=== PATIENT | female | born 1945 | race Caucasian/White ===

== ENCOUNTER → 2016-05-21 | Day surgery (SDC) | payer OTHER ==
[~2016-05-21] VITALS: Ht 162.6 cm; Wt 97.5 kg
[~2016-05-21] MED LIST: ALPRAZOLAM 0.50.5 M1 PO; ANTI-INFLAMATORY; ASPIRIN325 PO; BP MED; COLACE100 MG PO; COZAAR100 MG PO; CYCLOBENZAPRINE10 MG PO; CYMBALTA; CYMBALTA60 MG PO; GLYCOLAX POWDER17 G1 PO; GRALISE600 MG PO; HYDROCODONE-AP1 EAC6 PO; HYDROCODONE-APA1 TA1 PO; LOSARTAN-HCTZ1 EAC1 PO; LOSARTAN-HCTZ1 EAC3 PO; LYRICA 50 MG50 MG PO; MIRALAX255 GM PO; MOBIC15 MG PO; MORPHINE S10 MG/5 M2 PO; MULTICHEW PO; MULTIVITAM9 MG/15 M1 PO; MULTIVITAMINS PO; NAPROSYN500 MG PO; NEURONTIN 300300 M1 PO; NORVASC2.5 MG PO; OMEPRAZOLE 20 M20 M1 PO; ONDANSETRON HCL4 M2 PO; OXYBUTYNIN 5 MG5 M2 PO; OXYCODONE HCL 55 MG PO; PRILOSEC 10MG C10 MG PO; PRILOSEC 20 MG20 MG PO; PROTONIX40 M2 PO; PROZAC 10 MG CA10 MG PO; PROZAC20 MG PO; PROZAC40 MG PO; ROXANOL 20 M20 MG/ML PO; TRAMADOL 50 MG50 MG PO; VOLTAREN GEL 1100 G1 TOP; VOLTAREN GEL 1100 G2 TOP; XANAX 0.5 MG0.5 M1 PO; XARELTO10 MG PO
--- NOTE | ~2016-05-21 | O ---
[facility] [place] [address] OPERATIVE REPORT Name: QIANA PORTILLO Room #: REG [facility]#: [id number] Admission: 05/21/16 Attend Phys: Franklin Jansen MD Discharge: Date of : 49 Report #: [id number] THIS REPORT FOR: //name// CC: [facility] physician/PCP Juani Jansen DATE OF SERVICE: 05/21/2016 SURGEON: Franklin Jansen M.D. LOST CHARGE CARD CLERK: None. PREOPERATIVE DIAGNOSIS: Bilateral lower lid ectropion. POSTOPERATIVE DIAGNOSIS: Bilateral lower lid ectropion. OPERATION PERFORMED: Bilateral lower lid ectropion repair. ANESTHESIA: Local with IV sedation. COMPLICATIONS: None. INDICATIONS FOR PROCEDURE: This patient has bilateral acquired lower lid ectropion with chronic tearing and discharge. The current procedures are undertaken in order to improve the patient's visual function, lacrimal outflow, and level of comfort. Informed consent was obtained to include but not limit to the risk of loss of vision, bleeding, infection, scarring, failure to improve the problem and need for further surgery. DESCRIPTION OF OPERATION: The patient was taken to the operating room where 2% Xylocaine with epinephrine mixed with equal parts of 0.75% Marcaine with Wydase was administered transcutaneously and transconjunctivally to each lower lid and lateral canthal area. The patient was then prepped and draped in the usual sterile fashion. A Vincent clamp was then used to clamp the left lateral canthus following which a sharp canthotomy and cantholysis were performed. The tarsal strip was prepared laterally, removing the lash bearing portion of the redundant lid margin and the redundant tarsal plate. Hemostasis was achieved with a monopolar cautery, as it was throughout the case. The tarsal strip was then secured to the internal portion of the lateral orbital tubercle with two interrupted 5-0 Prolene sutures. The lateral canthal angle was sharply reformed as the subcutaneous structures and the skin were closed with multiple interrupted 6-0 plain gut sutures. Attention was then turned to the right side where the same procedure was [facility] [address] [place] [address] OPERATIVE REPORT Name: QIANA PORTILLO Jan Room #: REG [facility].#: [id number] Admission: 05/21/16 Attend Phys: Franklin Jansen MD Discharge: Date of : 49 Report #: [id number] performed. The wounds were cleaned and dressed with ophthalmic antibiotic ointment. The patient was then transported to the recovery area, having tolerated the procedure well with no anesthetic or operative complications being noted. <ELECTRONICALLY SIGNED> By: Franklin Jansen MD 05/25/16 0614 [id number] 1035 Franklin Jansen MD /nt
[2016-05-21 08:10] VITALS: BP 146/85
== END | disposition home or self-care (01) ==
LOC: OR 05:21
DX: H02.102 Unspecified ectropion of right lower eyelid (principal); H02.105 Unspecified ectropion of left lower eyelid; F32.9 Major depressive disorder, single episode, unspecified; I10 Essential (primary) hypertension; M79.7 Fibromyalgia; Z96.653 Presence of artificial knee joint, bilateral; Z98.42 Cataract extraction status, left eye; Z98.41 Cataract extraction status, right eye; Z96.1 Presence of intraocular lens; Z96.641 Presence of right artificial hip joint
CPT/HCPCS: 50010; 50101; 50386; 50398; 51636; 56527; 56531; 62110; 62850; 70005

== ENCOUNTER → 2016-12-15 | Outpatient (CLI) | payer OTHER | LOC: ULTRA 08:08 | DX: K80.20 Calculus of gallbladder without cholecystitis without obstruction (principal); K21.9 Gastro-esophageal reflux disease without esophagitis; K44.9 Diaphragmatic hernia without obstruction or gangrene; E66.01 Morbid (severe) obesity due to excess calories; Z98.890 Other specified postprocedural states ==

== ENCOUNTER 2017-01-13 05:24 | Day surgery (SDC) | payer OTHER ==
[~2017-01-13] VITALS: Ht 162.6 cm; Wt 109.3 kg
--- NOTE | ~2017-01-13 | S ---
[facility] [place] [address] SURGICAL PATH RPT PROCEDURE Name: QIANA SHAFER Room #: DEP [facility].#: [id number] Admission: 01/13/17 Date of : 49 Discharge: 01/13/17 Report #: [id number] Path Case #: [id number] PATHOLOGY REPORT COLLECTION DATE: 01/13/2017 RECEIVED DATE: 01/13/2017 SUBMITTING PHYS: Dr. Gerald Ybarra OTHER PHYS: BRIJESH Bland SPECIMEN(S) RECEIVED: A.Gallbladder * * * * * * * * * * * * FINAL DIAGNOSIS: "Gallbladder", cholecystectomy: - Chronic cholecystitis with cholesterolosis. - Cholelithiasis. (CLW:helen; 01/15/2017) PATHOLOGIST: Selina Gallego M.D. REPORT ELECTRONICALLY SIGNED BY: Selina Gallego M.D. DATE/TIME: 01/15/2017 14:56 * * * * * * * * * * * * GROSS PATHOLOGY: Received in formalin labeled "Qiana Shafer, gallbladder," is a 6.4 x 5.3 x 2.3 cm, previously opened gallbladder with a graybluish, wrinkled serosal surfaces. Opening the gallbladder reveals dark green, velvety mucosa rippled with yellow highlights, and an average wall thickness of 0.2 cm. Calculi are present, measuring 0.3-0.8 cm in maximum dimension, possessing a dark brown color, and feeling friable to the touch. No masses are noted grossly. Rebar Bender sections from the body and fundus are submitted along with the proximal margin in cassette A1. (TSD; 01/14/2017) CLINICAL HISTORY: Cholelithiasis INITIAL CPT CODE(S): A; 73782 Professional services performed by [facility] at [facility] [address], [place] [address] [facility] [address] [place] [address] SURGICAL PATH RPT PROCEDURE Name: QIANA SHAFER Jan Room #: DEP [facility] Mary#: [id number] Admission: 01/13/17 Date of : 49 Discharge: 01/13/17 Report #: [id number] Path Case #: [id number] Technical services performed by [facility] at [address] [place] [address], [facility] [address] [address]. [facility] [address] [place] [address] PHONE: [phone] DIRECTOR: Jer Arellano M.D. * * * END OF REPORT * * *
--- NOTE | ~2017-01-13 | O ---
[address] [address] OPERATIVE REPORT Name: QIANA PORTILLO Room #: [facility].#: [id number] Admission: 01/13/17 Attend Phys: Gerald Ybarra MD, F Discharge: 01/13/17 Date of : 49 Report #: [id number] THIS REPORT FOR: //name// CC: Bere Ybarra DATE OF SERVICE: 01/13/2017 SURGEON: Gerald Ybarra MD UNDERWRITER: None. PREOPERATIVE DIAGNOSES: 1. Symptomatic cholelithiasis. 2. Hypertension. 3. Anxiety. 4. Fibromyalgia. 5. History of sleeve gastrectomy. POSTOPERATIVE DIAGNOSES: 1. Symptomatic cholelithiasis. 2. Hypertension. 3. Anxiety. 4. Fibromyalgia. 5. History of sleeve gastrectomy. PROCEDURE: Robotic assisted laparoscopic cholecystectomy. ANESTHESIA: General endotracheal anesthesia and local anesthetic. ESTIMATED BLOOD LOSS: 10 mL. SPECIMEN: Gallbladder. COMPLICATIONS: None appreciated. INDICATIONS FOR PROCEDURE: This is a 71-year-old female patient of Bere Bhakta, nurse practitioner, who was seen with complaints of postprandial right upper quadrant abdominal pain and nausea. Abdominal ultrasound revealed cholelithiasis with gallbladder wall thickening. The patient presents now for robotic-assisted laparoscopic cholecystectomy. OPERATIVE FINDINGS: Upon entrance into the abdominal cavity, the patient had evidence for chronic cholecystitis. The gallbladder wall was thickened from chronic changes with no acute inflammatory changes seen. The critical view consisting of the cystic artery, cystic duct and lower edge of the gallbladder [address] [place] [address] OPERATIVE REPORT Name: QIANA PORTILLO Room #: DEP [facility].#: [id number] Admission: 01/13/17 Attend Phys: Gerald Ybarra MD, F Discharge: 01/13/17 Date of : 49 Report #: [id number] forming a window to which liver was visible, was seen prior to clipping the cystic artery and cystic duct. After removal of the gallbladder from the abdominal cavity, gallbladder was found to be packed with multiple small nonpigmented stones. No other significant intraabdominal pathology was identified. Two clips remained on the cystic duct stump; one clip remained on the cystic artery stump. At the conclusion of the operation, the sponge, needle, and instrument counts were correct. There was no evidence for iatrogenic injury and no other significant intraabdominal pathology was seen. DESCRIPTION OF PROCEDURE IN DETAIL: After the risks, benefits, and expectations of the operation were discussed in detail with the patient, informed consent was obtained. The patient was identified in the preoperative holding area. She was given IV antibiotics as documented in the chart in line with SCIP metrics. The patient was then taken to the operating room and she was placed in the supine position. SCDs were placed on the patient's bilateral lower extremities and pneumatic compression was initiated. The patient was then given IV sedation and she was intubated without incident. The bed was rotated 180 degrees to accommodate for docking of the robot. The patient's abdomen was then prepped and draped in the standard sterile fashion. A timeout was performed to identify the correct patient and procedure. Local anesthetic was infiltrated into the skin and subcutaneous tissue in the left mid abdomen where a small transverse incision was made. A 5 mm Visiport was placed intraperitoneally with a 0-degree angled laparoscope. Pneumoperitoneum was achieved with insufflation of carbon dioxide to 15 mmHg. A 30-degree angled laparoscope was then inserted. A 12 mm infraumbilical as well as 8 mm right quadrant ports x 2 were placed under direct visualization after local anesthetic was infiltrated into the skin and subcutaneous tissue and appropriately sized incisions were made. The 8 mm ports were specific for the da Teena robot. Using the 30-degree angled scope, a 5 mm port was upsized to the da Teena specific 8 mm port under direct visualization. The patient was then placed in the reverse Trendelenburg position. The robot was then brought in to dock to the laparoscopic ports. Just prior to docking the robot to each port, the patient was further positioned in the reverse Trendelenburg position, rotated slightly to the left. The robot was then docked to each of the ports. I then broke scrub to perform the dissection on the robotic console. Using prograsper instruments in arms 2 and 3 and the hook in arm 1, the gallbladder was retracted in lateral direction. The gallbladder and peritoneum was then scored medially and laterally with the hook cautery. Dissection was carried out around the cystic artery and cystic duct to identify both structures as there were only two structures entering the gallbladder. The critical view of safety as described above was seen. The cystic duct was then triply clipped and cystic artery doubly clipped and each structure was divided sharply with a good seal/hemostasis. The gallbladder was then dissected out of the liver bed with the hook cautery. The clip on the gallbladder side of the [facility] [address] [place] [address] OPERATIVE REPORT Name: QIANA PORTILLO Room #: [facility] M.R.#: [id number] Admission: 01/13/17 Attend Phys: Gerald Ybarra MD, F Discharge: 01/13/17 Date of : 49 Report #: [id number] cystic duct became dislodged. There was a small amount of bile and some gallstones that spilled out of the gallbladder. The gallbladder was fully dissected out the liver bed, then placed in the right upper quadrant of the abdomen for later removal. The abdominal cavity was then irrigated and suctioned and return of all drainage ran clear. There was good hemostasis in the liver bed. I then rescrubbed to retrieve the gallbladder. An Endopouch was placed through the 12 mm port and a 5 mm 30-degree angled laparoscope was used to assist with placement of the gallbladder into the Endopouch. The spilled gallstones were also placed within the Endopouch. Several stones were also retrieved with the grasper itself. The gallbladder was then removed through the 12 mm port site. A #0 PDS suture was then placed with the Bashir-Vivienne laparoscopic fascial closure device under direct visualization. The liver bed was reexamined for hemostasis. No other significant pathology was identified. The suture was tied under direct visualization to ensure no incorporation of intraabdominal content with the closure. The abdominal cavity was then desufflated and the ports were removed. Interrupted subcuticular 4-0 Monocryl sutures and Dermabond were used to close the skin incisions. The patient tolerated the procedure well. She was awakened, extubated, and taken to recovery room in stable condition with no apparent intraoperative complications. <ELECTRONICALLY SIGNED> By: Gerald Ybarra MD, FACS 01/14/17 0652 [id number] 0022 Gerald Ybarra MD, FACS /nt
[~2017-01-13 05:24] MED LIST changes: +MIRALAX17 G1 PO; +PAXIL 20 MG TAB20 MG PO; +VITAMIN B12-FO1 EAC1 PO; +VITAMIN D2000 UNI1 PO
[2017-01-13 08:21] VITALS: BP 139/69
[2017-01-13] MEDS ORDERED: MEDI-LAXX TABL1 EACH PO (11:15)
[2017-01-13] MEDS ORDERED: AUGMENTIN 875875 MG PO (11:15)
[2017-01-13] MEDS ORDERED: DIFLUCAN200 MG PO (11:15)
[2017-01-13] MEDS ORDERED: HYDROCODONE-AP1 EAC6 PO (11:15)
[2017-01-13 11:50] VITALS: BP 139/69
== END 2017-01-13 15:00 | disposition home or self-care (01) ==
LOC: OR 05:24 → TBA 05:25 → OR 09:40
DX: K80.10 Calculus of gallbladder with chronic cholecystitis without obstruction (principal); I10 Essential (primary) hypertension; M79.7 Fibromyalgia; F41.8 Other specified anxiety disorders; F32.89 Other specified depressive episodes; G47.33 Obstructive sleep apnea (adult) (pediatric); Z96.653 Presence of artificial knee joint, bilateral; Z98.84 Bariatric surgery status; Z98.890 Other specified postprocedural states; Z98.41 Cataract extraction status, right eye; Z98.42 Cataract extraction status, left eye; Z96.1 Presence of intraocular lens; Z90.710 Acquired absence of both cervix and uterus; Z96.641 Presence of right artificial hip joint; Z79.899 Other long term (current) drug therapy
CPT/HCPCS: 49000; 50010; 50101; 50249; 50411; 50555; 50558; 51975; 52265; 54022; 54118; 56525; 56526; 56632; 56641; 57006; 62110; 62900; 64029; 70005

== ENCOUNTER → 2017-04-16 | Outpatient (CLI) | payer OTHER ==
[~2017-04-16] MED LIST changes: +AUGMENTIN 875875 MG PO; +DIFLUCAN200 MG PO; +MEDI-LAXX TABL1 EACH PO
== END ==
LOC: RAD 08:32
DX: M25.551 Pain in right hip (principal)

== ENCOUNTER → 2018-03-09 | Outpatient (CLI) | payer OTHER | LOC: RAD 01:17 | DX: Z12.31 Encounter for screening mammogram for malignant neoplasm of breast (principal) ==

== ENCOUNTER → 2019-02-23 | Outpatient (CLI) | payer OTHER | LOC: CAT 09:23 | DX: M25.462 Effusion, left knee (principal); M71.22 Synovial cyst of popliteal space [Baker], left knee; Z96.652 Presence of left artificial knee joint ==

== ENCOUNTER → 2019-12-21 | Outpatient (CLI) | payer OTHER ==
[2019-12-21 10:27] LABS: ABSOLUTE NEUTROPHILS 4.1 thou/uL (1.4-8.2); BASOPHILS 0.8 % (0.0-2.0); EOSINOPHILS 1.6 % (0.0-3.0); HEMATOCRIT 41.5 % (37.0-47.0); HEMOGLOBIN 13.4 gm/dL (12.0-15.0); LYMPHOCYTES 30.1 % (24.0-44.0); MCH 27.4 pg (26.0-34.0); MCHC 32.2 g/dL (28.0-37.0); MCV 85.2 fL (80.0-100.0); PLATELET COUNT 313 thou/uL (150-400); POLYS 60.5 % (36.0-66.0); RBC 4.87 mil/uL (4.20-5.00); RDW 15.6 % (10.5-14.5); WBC 6.7 thou/uL (4.0-11.0)
[2019-12-21 11:30] LABS: ALBUMIN 3.7 g/dL (3.4-5.0); ANION GAP 9 mmol/L (7-16); BUN 17 mg/dL (7-18); CALCIUM 8.8 mg/dL (8.5-10.1); CHLORIDE 104 mmol/L (98-107); CHOLESTEROL 236 mg/dL (<200); CO2 29 mmol/L (21-32); DIRECT BILIRUBIN 0.1 mg/dL (<0.1-0.2); GLUCOSE 108 mg/dL (74-106); HDL CHOLESTEROL 82 mg/dL (>40); LDL CHOLESTEROL 141 mg/dL (<100); POTASSIUM 3.9 mmol/L (3.5-5.1); SGOT 16 U/L (15-37); SGPT 19 U/L (30-65); SODIUM 142 mmol/L (136-145); TC:HDL 2.9 Ratio (Not establshd); TOTAL BILIRUBIN 0.5 mg/dL (0.2-1.0); TOTAL PROTEIN 7.3 g/dL (6.4-8.2); TRIGLYCERIDE 66 mg/dL (<150); VLDL 13 mg/dL (<40)
[2019-12-21 12:21] LABS: TSH 1.62 uIU/mL (0.358-3.740)
[2019-12-22 01:06] LABS: GLYCOHEMOGLOBIN (HGB A1C) 5.5 % (4.8-5.6)
== END ==
LOC: LABMALL 08:36
PROVIDERS: ATTEND Registered Nurse Diabetes Educator
DX: Z13.220 Encounter for screening for lipoid disorders (principal); Z13.1 Encounter for screening for diabetes mellitus; E55.9 Vitamin D deficiency, unspecified; G47.33 Obstructive sleep apnea (adult) (pediatric); F41.9 Anxiety disorder, unspecified; I10 Essential (primary) hypertension; K21.9 Gastro-esophageal reflux disease without esophagitis; M54.12 Radiculopathy, cervical region; Z68.39 Body mass index [BMI] 39.0-39.9, adult

== ENCOUNTER → 2020-01-10 | Outpatient (CLI) | payer OTHER | LOC: LAB 11:42 | PROVIDERS: ATTEND Registered Nurse Diabetes Educator | DX: R53.83 Other fatigue (principal) ==

== ENCOUNTER → 2020-03-20 | Outpatient (CLI) | payer OTHER ==
[2020-03-20 13:57] LABS: ABSOLUTE NEUTROPHILS 4.1 thou/uL (1.4-8.2); BASOPHILS 0.8 % (0.0-2.0); EOSINOPHILS 1.2 % (0.0-3.0); HEMATOCRIT 39.4 % (37.0-47.0); HEMOGLOBIN 12.5 gm/dL (12.0-15.0); LYMPHOCYTES 26.6 % (24.0-44.0); MCH 27.3 pg (26.0-34.0); MCHC 31.8 g/dL (28.0-37.0); MCV 85.8 fL (80.0-100.0); MONOCYTES 7.8 % (1.0-8.0); PLATELET COUNT 308 thou/uL (150-400); POLYS 63.6 % (36.0-66.0); RDW 15.1 % (10.5-14.5); WBC 6.5 thou/uL (4.0-11.0)
[2020-03-21 04:06] LABS: GLYCOHEMOGLOBIN (HGB A1C) 5.4 % (4.8-5.6)
[2020-03-21 14:07] LABS: ANTI-DNA SCREEN 14 IU/mL (0-9); ANTI-RNP 0.7 AI (0.0-0.9)
== END ==
LOC: LAB 12:18
PROVIDERS: ATTEND Registered Nurse Diabetes Educator
DX: Z13.1 Encounter for screening for diabetes mellitus (principal); M79.7 Fibromyalgia; R53.83 Other fatigue; I10 Essential (primary) hypertension; G89.29 Other chronic pain; Z68.41 Body mass index [BMI] 40.0-44.9, adult; Z79.899 Other long term (current) drug therapy; Z86.39 Personal history of other endocrine, nutritional and metabolic disease

== ENCOUNTER → 2020-07-05 | Outpatient (CLI) | payer OTHER | LOC: LAB 13:27 | PROVIDERS: ATTEND Internal Medicine Gastroenterology | DX: Z01.812 Encounter for preprocedural laboratory examination (principal); Z20.822 Contact with and (suspected) exposure to COVID-19 ==

== ENCOUNTER → 2020-09-30 | Outpatient (CLI) | payer OTHER ==
[2020-09-30 08:40] LABS: ABSOLUTE NEUTROPHILS 4.7 thou/uL (1.4-8.2); BASOPHILS 0.8 % (0.0-2.0); EOSINOPHILS 1.4 % (0.0-3.0); HEMATOCRIT 39.9 % (37.0-47.0); HEMOGLOBIN 12.8 gm/dL (12.0-15.0); LYMPHOCYTES 23.1 % (24.0-44.0); MCH 26.3 pg (26.0-34.0); MCV 82.3 fL (80.0-100.0); MONOCYTES 6.5 % (1.0-8.0); PLATELET COUNT 325 thou/uL (150-400); POLYS 68.2 % (36.0-66.0); RBC 4.85 mil/uL (4.20-5.00); RDW 14.8 % (10.5-14.5); WBC 6.9 thou/uL (4.0-11.0)
[2020-09-30 08:56] LABS: ALBUMIN 3.3 g/dL (3.4-5.0); AMYLASE 40 U/L (25-115); ANION GAP 11 mmol/L (7-16); BUN 20 mg/dL (7-18); CALCIUM 8.7 mg/dL (8.5-10.1); CHLORIDE 101 mmol/L (98-107); CHOLESTEROL 225 mg/dL (<200); CO2 26 mmol/L (21-32); DIRECT BILIRUBIN 0.1 mg/dL (<0.1-0.2); GLUCOSE 100 mg/dL (74-106); HDL CHOLESTEROL 74 mg/dL (>40); LDL CHOLESTEROL 129 mg/dL (<100); LIPASE 69 U/L (73-393); POTASSIUM 4.1 mmol/L (3.5-5.1); SGOT 14 U/L (15-37); SGPT 15 U/L (30-65); SODIUM 138 mmol/L (136-145); TOTAL BILIRUBIN 0.7 mg/dL (0.2-1.0); TOTAL PROTEIN 7.5 g/dL (6.4-8.2); TRIGLYCERIDE 113 mg/dL (<150); VLDL 23 mg/dL (<40)
[2020-10-01 01:06] LABS: GLYCOHEMOGLOBIN (HGB A1C) 5.6 % (4.8-5.6)
== END ==
LOC: LAB 07:07
PROVIDERS: ATTEND Registered Nurse Diabetes Educator
DX: K52.9 Noninfective gastroenteritis and colitis, unspecified (principal); I10 Essential (primary) hypertension; K21.9 Gastro-esophageal reflux disease without esophagitis; Z13.1 Encounter for screening for diabetes mellitus; E55.9 Vitamin D deficiency, unspecified; Z13.220 Encounter for screening for lipoid disorders; Z68.41 Body mass index [BMI] 40.0-44.9, adult; Z79.899 Other long term (current) drug therapy